=== PATIENT | female | born 1950 | race Caucasian/White ===

== ENCOUNTER 2019-01-24 18:29 | Observation (INO) | payer OTHER, MEDICARE ==
--- NOTE | 2019-01-24 19:31 | ER Document Report ---
ED Medical Screen (RME) - General Chief Complaint: Chest Pain Stated Complaint: CHEST PAIN Time Seen by Provider: 01/24/19 19:21 Primary Care Provider: SHITAL AMBROSIO MD [Primary Care Provider] - Follow up as needed Mode of Arrival: Ambulatory Information source: Patient Notes: Patient is a 68-year-old female presenting to the emergency department with episode of dizziness, chest pain and palpitations. She reports she had one episode yesterday and then another episode today. She reports the chest pain feels like a pressure, goes through to straight through to her back and up into her left arm. At the time of my evaluation she reports all symptoms have completely resolved. Exam: Heart sounds S1-S2 present with no ectopy noted. Lung sounds clear and equal bilaterally. I have greeted and performed a rapid initial assessment of this patient. A comprehensive ED assessment and evaluation of the patient, analysis of test results and completion of the medical decision making process will be conducted by additional ED providers. I have specifically instructed the patient or family members with the patient to immediately return to any nursing staff yajaira uld anything change in the patient's condition or with their chief complaint. This medical record was dictated with voice recognizing software. There may be grammatical, syntax errors that are unintended. - Related Data Allergies/Adverse Reactions: No Known Allergies Allergy (Unverified 07/20/11 11:31) Past Medical History - Past Medical History Cardiac Medical History: Reports: Hx Hypercholesterolemia Denies: Hx Heart Attack, Hx Hypertension Pulmonary Medical History: Denies: Hx Asthma Neurological Medical History: Denies: Hx Cerebrovascular Accident, Hx Seizures GI Medical History: Denies: Hx Hepatitis, Hx Hiatal Hernia, Hx Ulcer Musculoskeltal Medical History: Reports Hx Arthritis Infectious Medical History: Denies: Hx Hepatitis Past Surgical History: Reports: Hx Oral Surgery. Denies: Hx Hysterectomy, Hx Mastectomy, Hx Open Heart Surgery, Hx Pacemaker Physical Exam - Vital signs Vitals: Temp Pulse Resp BP Pulse Ox 97.7 F 61 16 159/67 H 98 01/24/19 18:50 01/24/19 18:50 01/24/19 18:50 01/24/19 18:50 01/24/19 18:50 Course - Vital Signs Vital signs: Temp Pulse Resp BP Pulse Ox 97.7 F 61 16 159/67 H 98 01/24/19 18:50 01/24/19 18:50 01/24/19 18:50 01/24/19 18:50 01/24/19 18:50 Doctor's Discharge - Discharge Referrals: SHITAL AMBROSIO MD [Primary Care Provider] - Follow up as needed
[2019-01-24 19:51] LABS: ABSOLUTE EOSINOPHILS # (AUTO) 0.1 10^3/uL (0.0-0.6); ABSOLUTE LYMPHOCYTES (AUTO) 1.6 10^3/uL (0.5-4.7); ABSOLUTE MONOCYTES (AUTO) 0.4 10^3/uL (0.1-1.4); ABSOLUTE NEUT (AUTO) 3.9 10^3/uL (1.7-8.2); BASOPHILS % (AUTO) 0.7 % (0-2); EOSINOPHILS % (AUTO) 1.3 % (0-6); HEMATOCRIT 39.5 % (36.0-47.0); HEMOGLOBIN 13.4 g/dL (12.0-15.5); LYMPHOCYTES % (AUTO) 26.8 % (13-45); MEAN CORPUSCULAR HEMOGLOBIN 31.4 pg (27.0-33.4); MEAN CORPUSCULAR VOLUME 92 fl (80-97); MONOCYTES % (AUTO) 7.1 % (3-13); PLATELET COUNT 236 10^3/uL (150-450); RED BLOOD COUNT 4.28 10^6/uL (3.72-5.28); RED CELL DISTRIBUTION WIDTH 13.1 % (11.5-14.0); SEGMENTED NEUTROPHILS % (AUTO) 64.1 % (42-78); TOTAL CELLS COUNTED % (AUTO) 100 %; WHITE BLOOD COUNT 6.1 10^3/uL (4.0-10.5)
[2019-01-24 19:58] LABS: ALBUMIN 4.8 g/dL (3.5-5.0); ALKALINE PHOSPHATASE 79 U/L (38-126); ANION GAP 12 (5-19); ASPARTATE AMINO TRANSFERASE 21 U/L (14-36); BILIRUBIN,DIRECT 0.3 mg/dL (0.0-0.4); BILIRUBIN,TOTAL 0.4 mg/dL (0.2-1.3); BLOOD UREA NITROGEN 22 mg/dL (7-20); CALCIUM 9.8 mg/dL (8.4-10.2); CARBON DIOXIDE 26 mmol/L (22-30); CHLORIDE 103 mmol/L (98-107); GLUCOSE 98 mg/dL (75-110); POTASSIUM 4.4 mmol/L (3.6-5.0); TOTAL PROTEIN 7.4 g/dL (6.3-8.2)
--- NOTE | 2019-01-24 20:23 | RADIOLOGY REPORT (SQ) ---
EXAM DESCRIPTION: XR CHEST 2 VIEWS COMPLETED DATE/TME: 01/24/2019 19:22 CLINICAL HISTORY: chest pain COMPARISON: 08/18/2012 FINDINGS: Frontal and lateral views of the chest. Atherosclerotic calcification of the thoracic aorta. Heart is not enlarged. No consolidation, pneumothorax, or pleural effusion. No displaced rib fractures identified. Upper abdominal soft tissues are unremarkable. IMPRESSION: 1. No acute pulmonary process identified.
[2019-01-24] MEDS ORDERED: ASPIRIN 81 MG TABLET, CHEWABLE PO ONE (20:53)
--- NOTE | 2019-01-24 20:55 | ER Document Report ---
ED General - General Chief Complaint: Chest Pain Stated Complaint: CHEST PAIN Time Seen by Provider: 01/24/19 19:21 Primary Care Provider: SHITAL AMBROSIO MD [EMERITUS] - Follow up as needed Mode of Arrival: Ambulatory - [facility] Patient complains to provider of: Chest pain Notes: Pleasant 68-year-old female presents with concerning story of left-sided chest pain 8/10 crushing nature with radiation to her left arm and left side of her neck. She had an episode of this yesterday lasted about 3 hours and resolve spontaneously. Today she had another episode while she was shopping at the grocery store that made her profoundly short of breath as well, denies nausea vomiting or diaphoresis. Pain is greatly improved. Patient does not have a history of coronary artery disease, is not followed by cardiology. Patient last stress test was approximately 6 years ago. Denies fever chills hemoptysis. - Related Data Allergies/Adverse Reactions: No Known Allergies Allergy (Unverified 07/20/11 11:31) Past Medical History - General Information source: Patient - Social History Smoking Status: Former Smoker Chew tobacco use (# tins/day): No Frequency of alcohol use: Social Drug Abuse: None Family History: None Patient has suicidal ideation: No Patient has homicidal ideation: No - Past Medical History Cardiac Medical History: Reports: Hx Hypercholesterolemia Denies: Hx Heart Attack, Hx Hypertension Pulmonary Medical History: Denies: Hx Asthma Neurological Medical History: Denies: Hx Cerebrovascular Accident, Hx Seizures Renal/ Medical History: Denies: Hx Peritoneal Dialysis GI Medical History: Denies: Hx Hepatitis, Hx Hiatal Hernia, Hx Ulcer Musculoskeletal Medical History: Reports Hx Arthritis Infectious Medical History: Denies: Hx Hepatitis Past Surgical History: Reports: Hx Oral Surgery. Denies: Hx Hysterectomy, Hx Mastectomy, Hx Open Heart Surgery, Hx Pacemaker Review of Systems - Review of Systems Notes: REVIEW OF SYSTEMS: CONSTITUTIONAL: -fevers, -chills EENT: -eye pain, -difficulty swallowing, -nasal congestion CARDIOVASCULAR: + chest pain, -syncope. RESPIRATORY: -cough, -SOB GASTROINTESTINAL: -abdominal pain, -nausea, -vomiting, -diarrhea GENITOURINARY: -dysuria, -hematuria MUSCULOSKELETAL: -back pain, -neck pain SKIN: -rash or skin lesions. HEMATOLOGIC: -easy bruising or bleeding. LYMPHATIC: -swollen, enlarged glands. NEUROLOGICAL: -altered mental status or loss of consciousness, -headache, - neurologic symptoms PSYCHIATRIC: -anxiety, -depression. ALL OTHER SYSTEMS REVIEWED AND NEGATIVE. Physical Exam - Vital signs Vitals: Temp Pulse Resp BP Pulse Ox 97.7 F 61 16 159/67 H 98 01/24/19 18:50 01/24/19 18:50 01/24/19 18:50 01/24/19 18:50 01/24/19 18:50 - Notes Notes: PHYSICAL EXAMINATION: GENERAL: Well-appearing, well-nourished and in no acute distress. HEAD: Atraumatic, normocephalic. EYES: Pupils equal round and reactive to light, extraocular movements intact, sclera anicteric, conjunctiva are normal. ENT: nares patent, oropharynx clear without exudates. Moist mucous membranes. NECK: Normal range of motion, supple without lymphadenopathy LUNGS: Breath sounds clear to auscultation bilaterally and equal. No wheezes rales or rhonchi. HEART: Regular rate and rhythm without murmurs ABDOMEN: Soft, nontender, normoactive bowel sounds. No guarding, no rebound. No masses appreciated. EXTREMITIES: Normal range of motion, no pitting or edema. No cyanosis. NEUROLOGICAL: Cranial nerves grossly intact. Normal speech, normal gait. Normal sensory and motor exams. PSYCH: Normal mood, normal affect. SKIN: Warm, Dry, normal turgor, no rashes or lesions noted. Course - Re-evaluation Re-evalutation: 01/24/19 20:54 Pleasant 68-year-old female presents with concerning story of pain with radiation to her left arm and left neck associate with shortness of breath. 01/24/19 21:06 68-year-old female presents with concerning story of chest pain with radiation to her left arm and left neck. With shortness of breath. Patient's initial EKG is no ischemic changes, extensive lab work-up shows no gross abnormalities negative troponin. Patient is heart risk score 5. Inpatient further evaluation. - Vital Signs Vital signs: Temp Pulse Resp BP Pulse Ox 97.7 F 61 16 159/67 H 98 01/24/19 18:50 01/24/19 18:50 01/24/19 18:50 01/24/19 18:50 01/24/19 18:50 - Laboratory Result Diagrams: 01/24/19 19:40 01/24/19 19:40 Laboratory results interpreted by me: 01/24/19 19:40 BUN 22 H - EKG Interpretation by Me EKG shows normal: Sinus rhythm Rate: Normal Additional EKG results interpreted by me: 01/24/19 20:55 Normal sinus rhythm 69 bpm, normal ID interval, no ST elevations or depressions, no pathologic T wave inversions. Discharge - Discharge Clinical Impression: Chest pain Qualifiers: Chest pain type: unspecified Qualified Code(s): R07.9 - Chest pain, unspecified Condition: Stable Disposition: ADMITTED INPATIENT Admitting Provider: [facility] Unit Admitted: Telemetry Referrals: SHITAL AMBROSIO MD [EMERITUS] - Follow up as needed
[2019-01-25] MEDS ORDERED: ENOXAPARIN SODIUM INJ 80 MG/0.8 ML DISP.SYRIN SUBCUT ONE (00:30)
[2019-01-25 01:55] LABS: CREATINE KINASE MB 1.39 ng/mL (<4.55)
[2019-01-25 01:56] LABS: TROPONIN I < 0.012 ng/mL
[2019-01-25] MEDS ORDERED: ASPIRIN 81 MG TABLET, CHEWABLE PO ONE (05:30)
--- NOTE | 2019-01-25 07:35 | PDOC H&P ---
History of Present Illness Admission Date/PCP: 01/24/19 21:20 GHASSAN MUÑIZ MD Patient complains of: chest pain History of Present Illness: MEHDI BOND is a 68 year old female with 3h discomfort under L breast radiating to back and L arm grade 2of10 2d ago with 2h recurrence shopping yesterday. 2013 nuc was ok. Past Medical History Cardiac Medical History: Reports: Hyperlipidema, Hypertension Denies: Myocardial Infarction Pulmonary Medical History: Reports: None EENT Medical History: Reports: None Neurological Medical History: Reports: None Endocrine Medical History: Reports: Diabetes Mellitus Type 2 - 2014 [id number] on prednisone 3mg for pmr. Refused metf. Now off prednisone. 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 Galarza Lives with: Family Smoking Status: Former Smoker Number of Years Smokin Last Time Smoked: 1998 Frequency of Alcohol Use: None Hx Recreational Drug Use: No Hx Prescription Drug Abuse: No - Advance Directive Resuscitation Status: Full Code Family History Family History: DM Parental Family History Reviewed: Yes Children Family History Reviewed: Yes Sibling(s) Family History Reviewed.: Yes Medication/Allergy Home Medications: Calcium Carbonate [Tums Chewable 500 mg Tab.chew] 500 mg PO DAILY 01/24/19 Meloxicam [Mobic] 15 mg PO DAILY 01/24/19 Pravastatin Sodium [Pravachol] 40 mg PO DAILY 01/24/19 Allergies/Adverse Reactions: No Known Allergies Allergy (Unverified 07/20/11 11:31) Review of Systems Constitutional: PRESENT: headache(s). ABSENT: fever(s), weight loss Nose, Mouth, and Throat: ABSENT: sore throat Cardiovascular: ABSENT: orthropnea Respiratory: PRESENT: dyspnea. ABSENT: cough Gastrointestinal: ABSENT: abdominal pain, constipation, diarrhea, hematochezia, vomiting Musculoskeletal: PRESENT: back pain Integumentary: ABSENT: rash Psychiatric: PRESENT: anxiety Physical Exam Vital Signs: Temp Pulse Resp BP Pulse Ox 97.7 F 59 L 18 145/58 H 96 01/24/19 18:50 01/25/19 04:23 01/24/19 22:02 01/24/19 22:02 01/24/19 22:02 Intake & Output 01/23/19 01/24/19 01/25/19 07:59 07:59 07:59 Weight 165 lb General appearance: PRESENT: no acute distress Mouth exam: PRESENT: moist, neck supple, tongue midline Neck exam: ABSENT: lymphadenopathy, tenderness, thyromegaly, tracheal deviation Respiratory exam: PRESENT: clear to auscultation uzair Cardiovascular exam: ABSENT: diastolic murmur, irregular rhythm, systolic murmur GI/Abdominal exam: ABSENT: mass, organolmegaly, tenderness Extremities exam: ABSENT: pedal edema Neurological exam: PRESENT: oriented to situation Psychiatric exam: PRESENT: appropriate affect Results Laboratory Results: 01/24/19 19:40 01/24/19 19:40 01/24/19 01/24/19 19:40 19:40 WBC 6.1 RBC 4.28 Hgb 13.4 Hct 39.5 MCV 92 MCH 31.4 MCHC 34.0 RDW 13.1 Plt Count 236 Seg Neutrophils % 64.1 Lymphocytes % 26.8 Monocytes % 7.1 Eosinophils % 1.3 Basophils % 0.7 Absolute Neutrophils 3.9 Absolute Lymphocytes 1.6 Absolute Monocytes 0.4 Absolute Eosinophils 0.1 Absolute Basophils 0.0 Sodium 140.9 Potassium 4.4 Chloride 103 Carbon Dioxide 26 Anion Gap 12 BUN 22 H Creatinine 0.77 Est GFR ( Amer) > 60 Est GFR (Non-Af Amer) > 60 Glucose 98 Calcium 9.8 Total Bilirubin 0.4 AST 21 Alkaline Phosphatase 79 Total Protein 7.4 Albumin 4.8 01/24/19 01/25/19 01/25/19 19:40 01:24 01:24 Creatine Kinase 85 CK-MB (CK-2) 1.39 Troponin I < 0.012 < 0.012 Impressions: Chest X-Ray 01/24/19 19:22 IMPRESSION: 1. No acute pulmonary process identified. Assessment & Plan - Diagnosis (1) Chest pain Qualifiers: Chest pain type: precordial pain Qualified Code(s): R07.2 - Precordial pain Is this a current diagnosis for this admission?: Yes Plan: lovenox troponins nuc
--- NOTE | 2019-01-25 07:36 | EKG REPORT ---
SEVERITY:- ABNORMAL ECG - SINUS RHYTHM PROBABLE LEFT ATRIAL ABNORMALITY PROBABLE LEFT VENTRICULAR HYPERTROPHY : Confirmed by: Sushil Collins MD 25-Jan-2019 07:35:17
--- NOTE | 2019-01-25 07:36 | EKG REPORT ---
SEVERITY:- NORMAL ECG - SINUS RHYTHM : Confirmed by: Sushil Collins MD 25-Jan-2019 07:35:03
[2019-01-25 08:31] LABS: CREATINE KINASE MB 1.18 ng/mL (<4.55)
[2019-01-25 08:37] LABS: TROPONIN I < 0.012 ng/mL
[2019-01-25 09:13] VITALS: BP 137/46
[2019-01-25] MEDS ORDERED: FAMOTIDINE 20 MG TABLET PO SCH (10:00)
[2019-01-25] MEDS ORDERED: ENOXAPARIN SODIUM INJ 80 MG/0.8 ML DISP.SYRIN SUBCUT SCH (10:00)
--- NOTE | 2019-01-25 12:07 | DRAGON STRESS TEST REPORT ---
Intravenous Lexiscan Cardiolite stress test using single photon emmision computerized tomography. Date of procedure: 01/25/2019. Ordering Provider: Dr. Cruzito Starks. Patient's status: In Patient Indication: Chest pain. Coronary risk factors: Age, diabetes mellitus, hypertension, and dyslipidemia. Resting EKG: Sinus Rhythm. With 1 PAC. EKG within normal limits. Stress EKG: No changes of ischemia. The patient had no chest pain or discomfort, and there were no arrhythmias seen. Reason for termination: Protocol. Conclusions: Normal EKG and hemodynamic response to IV Lexiscan. Nuclear data: At rest the patient was given 11.98 millicuries of technetium 99m sestamibi injected intravenously. As per protocol rest non gated SPECT images were obtained. Subsequently the patient was given intravenous Lexiscan at a dose of 0.4 mg in 5 mL intravenously, followed by flush with normal saline. Subsequently the stress dose of 32.8 millicuries of technetium 99m sestamibi was injected intravenously. As per protocol stress gated images were obtained. Nuclear interpretation: Review of images showed that all segments of the myocardium had normal perfusion at rest, and normal perfusion post stress with IV Lexiscan. All segments of the myocardium had normal motion, contraction, and thickening by gated study. T. I D. ratio was normal at 0.96. There is no transient ischemic dilatation of the left ventricle. Computer read rest, and stress left ventricular ejection fraction were 62 %, and 57 %, respectively. Visually both the stress and rest ejection fractions were normal, and greater than 60%. Conclusion: 1. There is no scintigraphic evidence of Lexiscan induced myocardial ischemia. 2. There is no scintigraphic evidence of myocardial infarction/scar. Recommendations: Aggressive risk factor modification, and treating the underlying co- morbidities . [facility]
[2019-01-25] MEDS ORDERED: REGADENOSON INJ 0.4 MG/5 ML DISP.SYRIN IV ONE (12:13)
--- NOTE | 2019-01-25 13:40 | PDOC DISCHARGE SUMMARY ---
General - Admit/Disc Date/PCP Admission Date/Primary Care Provider: 01/24/19 21:20 GHASSAN MUÑIZ MD Discharge Date: 01/25/19 - Discharge Diagnosis (1) Chest pain Is this a current diagnosis for this admission?: Yes Summary: troponins and suzie were normal. Ej & TID normal - Additional Information Resuscitation Status: Full Code Discharge Diet: Regular Discharge Activity: Activity As Tolerated Home Medications: Calcium Carbonate [Tums Chewable 500 mg Tab.chew] 500 mg PO DAILY 01/24/19 Meloxicam [Mobic] 15 mg PO DAILY 01/24/19 Pravastatin Sodium [Pravachol] 40 mg PO DAILY 01/24/19 History of Present Illness Patient complains of: chest pain last 2d History of Present Illness: MEHDI BOND is a 68 year old female with 3h discomfort under L breast radiating to back and L arm grade 2of10 2d ago with 2h recurrence shopping yesterday. 2013 nuc was ok. Hospital Course Hospital Course: mi ruled out. Suzie normal. Wants to see Dr Collins in follow up Physical Exam Vital Signs: Temp Pulse Resp BP Pulse Ox 97.5 F 63 12 137/46 H 94 01/25/19 07:13 01/25/19 07:13 01/25/19 07:13 01/25/19 07:13 01/25/19 07:13 Intake & Output 01/24/19 01/25/19 01/26/19 07:59 07:59 07:59 Weight 166 lb 0.129 oz General appearance: PRESENT: no acute distress Respiratory exam: PRESENT: clear to auscultation uzair Cardiovascular exam: ABSENT: diastolic murmur, irregular rhythm, systolic murmur GI/Abdominal exam: ABSENT: mass, organolmegaly, tenderness Extremities exam: ABSENT: pedal edema Neurological exam: PRESENT: oriented to situation Psychiatric exam: PRESENT: appropriate affect Results Laboratory Results: 01/24/19 19:40 01/24/19 19:40 01/24/19 01/24/19 19:40 19:40 WBC 6.1 RBC 4.28 Hgb 13.4 Hct 39.5 MCV 92 MCH 31.4 MCHC 34.0 RDW 13.1 Plt Count 236 Seg Neutrophils % 64.1 Lymphocytes % 26.8 Monocytes % 7.1 Eosinophils % 1.3 Basophils % 0.7 Absolute Neutrophils 3.9 Absolute Lymphocytes 1.6 Absolute Monocytes 0.4 Absolute Eosinophils 0.1 Absolute Basophils 0.0 Sodium 140.9 Potassium 4.4 Chloride 103 Carbon Dioxide 26 Anion Gap 12 BUN 22 H Creatinine 0.77 Est GFR ( Amer) > 60 Est GFR (Non-Af Amer) > 60 Glucose 98 Calcium 9.8 Total Bilirubin 0.4 AST 21 Alkaline Phosphatase 79 Total Protein 7.4 Albumin 4.8 01/24/19 01/25/19 01/25/19 19:40 01:24 01:24 Creatine Kinase 85 CK-MB (CK-2) 1.39 Troponin I < 0.012 < 0.012 01/25/19 01/25/19 07:47 07:47 Creatine Kinase 80 CK-MB (CK-2) 1.18 Troponin I < 0.012 Impressions: Chest X-Ray 01/24/19 19:22 IMPRESSION: 1. No acute pulmonary process identified. Qualifiers - * PATIENT BEING DISCHARGED WITH ANY OF THE FOLLOWING DIAGNOSIS: No Acute Heart Failure - Is this a Heart Failure Patient?: No Plan Discharge Plan: home. OV Dr Collins next week
[2019-01-25 14:33] LABS: CREATINE KINASE MB 1.01 ng/mL (<4.55)
[2019-01-25 14:38] LABS: TROPONIN I < 0.012 ng/mL
[2019-01-25] MEDS ORDERED: ATORVASTATIN CALCIUM 10 MG TABLET PO SCH (22:00)
[2019-01-26] MEDS ORDERED: ASPIRIN 81 MG TABLET, CHEWABLE PO SCH (10:00)
--- NOTE | 2019-01-30 08:47 | DISCHARGE SUMMARY E ---
Discharge Summary NAME: MEHDI BOND : 1950 AGE: 68Y ADMITTED: 01/24/2019 DISCHARGED: 01/25/2019 ADDENDUM: Most likely cause of the chest pain was GERD. DICTATING PHYSICIAN: GHASSAN MUÑIZ M.D. [id number] PHY#: [id number] ID: [id number] JOB#: [id number] ACCT: [id number] cc:GHASSAN MUÑIZ M.D. >
== END 2019-01-25 16:01 | disposition home or self-care (01) ==
LOC: ER 18:29 → EH 21:20 → INTOOBSV 21:20 → 4N 22:44
PROVIDERS: ADMIT Family Medicine; ATTEND Family Medicine
DX: R07.89 Other chest pain (principal); R07.2 Precordial pain; K21.9 Gastro-esophageal reflux disease without esophagitis; E11.9 Type 2 diabetes mellitus without complications; R51 Headache; R06.00 Dyspnea, unspecified; E78.5 Hyperlipidemia, unspecified; M54.9 Dorsalgia, unspecified; R42 Dizziness and giddiness; R00.2 Palpitations; F41.9 Anxiety disorder, unspecified; M19.90 Unspecified osteoarthritis, unspecified site; Z87.891 Personal history of nicotine dependence; Z79.1 Long term (current) use of non-steroidal anti-inflammatories (NSAID)
CPT/HCPCS: 93005 ×2; 99285; 36415 ×2; 82553; 82550; 85025; 80053; 84484 ×2; 93017; 71046; 78452; 93010 ×2; G0378; A9500; J2785; Q9969

== ENCOUNTER → 2019-05-02 | Outpatient (CLI) | payer MEDICARE, OTHER ==
[2019-05-02 09:40] LABS: ALBUMIN 4.4 g/dL (3.5-5.0); ALKALINE PHOSPHATASE 83 U/L (38-126); ANION GAP 9 (5-19); ASPARTATE AMINO TRANSFERASE 22 U/L (14-36); BILIRUBIN,DIRECT 0.2 mg/dL (0.0-0.4); BILIRUBIN,TOTAL 0.6 mg/dL (0.2-1.3); BLOOD UREA NITROGEN 21 mg/dL (7-20); CALCIUM 9.6 mg/dL (8.4-10.2); CARBON DIOXIDE 27 mmol/L (22-30); CHLORIDE 105 mmol/L (98-107); CHOLESTEROL 175.04 mg/dL (0-200); GLUCOSE 120 mg/dL (75-110); POTASSIUM 4.5 mmol/L (3.6-5.0); TOTAL PROTEIN 7.4 g/dL (6.3-8.2); TRIGLYCERIDES 110 mg/dL (<150)
[2019-05-02 09:54] LABS: DIRECT LDL 86 mg/dL (<100)
== END ==
LOC: LAB 08:34
PROVIDERS: ATTEND Internal Medicine Cardiovascular Disease
DX: E78.00 Pure hypercholesterolemia, unspecified (principal); R07.89 Other chest pain; R00.2 Palpitations; R42 Dizziness and giddiness; Z79.899 Other long term (current) drug therapy
CPT/HCPCS: 36415; 80048; 80061; 80076; 83036; 83735; 84443

== ENCOUNTER → 2019-11-30 | Outpatient (CLI) | payer MEDICARE, OTHER ==
[2019-11-30 10:24] LABS: ALBUMIN 4.3 g/dL (3.5-5.0); ALKALINE PHOSPHATASE 93 U/L (38-126); ANION GAP 8 (5-19); ASPARTATE AMINO TRANSFERASE 25 U/L (14-36); BILIRUBIN,TOTAL 0.6 mg/dL (0.2-1.3); BLOOD UREA NITROGEN 23 mg/dL (7-20); CALCIUM 9.3 mg/dL (8.4-10.2); CARBON DIOXIDE 26 mmol/L (22-30); CHLORIDE 105 mmol/L (98-107); CHOLESTEROL 189.41 mg/dL (0-200); GLUCOSE 102 mg/dL (75-110); POTASSIUM 4.7 mmol/L (3.6-5.0); TOTAL PROTEIN 7.1 g/dL (6.3-8.2); TRIGLYCERIDES 121 mg/dL (<150)
[2019-11-30 10:35] LABS: DIRECT LDL 85 mg/dL (<100)
== END ==
LOC: OD 09:07
PROVIDERS: ATTEND Internal Medicine Cardiovascular Disease
DX: E78.00 Pure hypercholesterolemia, unspecified (principal); I10 Essential (primary) hypertension; R73.09 Other abnormal glucose; Z79.899 Other long term (current) drug therapy
CPT/HCPCS: 36415; 80048; 80061; 80076; 83036

== ENCOUNTER → 2020-07-09 | Outpatient (CLI) | payer MEDICARE, OTHER ==
[2020-07-09 11:31] LABS: ALBUMIN 4.2 g/dL (3.5-5.0); ALKALINE PHOSPHATASE 80 U/L (38-126); ASPARTATE AMINO TRANSFERASE 21 U/L (14-36); BILIRUBIN,DIRECT 0.1 mg/dL (0.0-0.4); BILIRUBIN,TOTAL 0.5 mg/dL (0.2-1.3); BLOOD UREA NITROGEN 19 mg/dL (7-20); CALCIUM 9.5 mg/dL (8.4-10.2); CARBON DIOXIDE 30 mmol/L (22-30); CHLORIDE 105 mmol/L (98-107); GLUCOSE 111 mg/dL (75-110); POTASSIUM 4.7 mmol/L (3.6-5.0); TOTAL PROTEIN 7.1 g/dL (6.3-8.2); TRIGLYCERIDES 135 mg/dL (<150)
[2020-07-09 11:42] LABS: DIRECT LDL 76 mg/dL (<100)
[2020-07-09 11:52] LABS: ANION GAP 5 (5-19)
== END ==
LOC: OD 09:55
PROVIDERS: ATTEND Internal Medicine Cardiovascular Disease
DX: E78.00 Pure hypercholesterolemia, unspecified (principal); I10 Essential (primary) hypertension; R73.09 Other abnormal glucose; Z79.899 Other long term (current) drug therapy
CPT/HCPCS: 36415; 80048; 80061; 80076; 83036